=== PATIENT | female | born 1995 | race African-American/Black ===

== ENCOUNTER 2017-04-04 22:21 | Emergency (ER) | payer MEDICAID, OTHER ==
[~2017-04-04] VITALS: Ht 175.3 cm; Wt 67.1 kg
[~2017-04-04 22:21] MED LIST: AFRIN NASAL SPR30 ML NASAL; ALBUTEROL SULF8.5 GM INH; BIRTH CONTROL PILL PO; IBUPROFEN400 MG PO; IBUPROFEN600 MG PO; KEFLEX500 MG ORAL; METROGEL-VAGINA70 G1 VG; TYLENOL EXTRA500 MG ORAL
[2017-04-04 22:29] VITALS: BP 138/95
[2017-04-04 23:15] LABS: BASOPHILS % (AUTO) 1.3 % (0.0-2.0); EOSINOPHILS % (AUTO) 2.7 % (0.0-3.0); LYMPHOCYTES % (AUTO) 53.5 % (20.0-45.0); MEAN CORPUSCULAR HEMOGLOBIN 31.8 PG (27.0-31.0); MEAN CORPUSCULAR HGB CONC 34.2 G/DL (32.0-36.0); MEAN CORPUSCULAR VOLUME 93 FL (80-99); MONOCYTES % (AUTO) 7.5 % (1.0-10.0); PLATELET COUNT 227 K/UL (150-450); RED BLOOD COUNT 4.09 M/UL (4.20-5.40); RED CELL DISTRIBUTION WIDTH 12.1 % (11.6-14.8); WHITE BLOOD COUNT 8.6 K/UL (4.8-10.8)
[2017-04-04] MEDS ORDERED: Ketorolac 30mg Inj IV ONE (23:15)
[2017-04-04 23:16] LABS: APPEARANCE,URINE CLEAR; KETONES,URINE NEGATIVE (NEGATIVE); LEUKOCYTE ESTERASE ,URINE 1+ (NEGATIVE); NITRITE,URINE NEGATIVE (NEGATIVE); PH,URINE 7 (4.5-8.0); PROTEIN,URINE 1+ (NEGATIVE); UROBILINOGEN,URINE 1 MG/DL (0.0-1.0)
[2017-04-04 23:19] LABS: SQUAMOUS EPITHELIAL CELL,UR FEW /LPF (NONE/OCC); WBC,URINE 0-2 /HPF (0 - 2)
[2017-04-04 23:20] LABS: BACTERIA,URINE FEW /HPF
[2017-04-04 23:39] LABS: ALANINE AMINOTRANSFERASE 14 U/L (3-33); ALBUMIN/GLOBULIN RATIO 1.4 (1.0-2.7); ANION GAP 9 (5-15); ASPARTATE AMINO TRANSFERASE 18 U/L (5-40); CALCIUM 9.8 mg/dL (8.6-10.2); CARBON DIOXIDE 28 mEQ/L (20-30); CHLORIDE 101 mEQ/L (98-107); GLOMERULAR FILTRATION RATE > 60 mL/min (>60); HEMOLYSIS 4; LIPASE 17 U/L (< 60); POTASSIUM 3.9 mEQ/L (3.4-4.9); SODIUM 138 mEQ/L (135-145); TOTAL PROTEIN 7.3 g/dL (6.6-8.7)
[2017-04-04] MEDS ORDERED: ZOFRAN4 MG ORAL (23:47)
[2017-04-04] MEDS ORDERED: IBUPROFEN600 MG ORAL (23:47)
--- NOTE | 2017-04-04 23:47 | Emergency Room Report ---
History of Present Illness General Chief Complaint: Abdominal Pain Source: Patient Present Illness HPI Is a 22-year-old female with no past medical history. She presents with abdominal at and vomiting. This morning. She thought that she may have had some food poisoning. She ate pizza last night and felt cramps in tonight. Vomiting started the morning. No diarrhea. Pain is 8/10 cramping and sharp in nature. No radiation. Diffuse. No dysuria frequency. Allergies: Coded Allergies: No Known Allergies (Unverified , 04/04/17) Patient History Past Medical History: none, see triage record, old chart reviewed Past Surgical History: none Pertinent Family History: none Social History: Denies: smoking Last Menstrual Period: n/a Now: No - depo 02/2017 Immunizations: other Reviewed Nursing Documentation: PMH: Agreed, PSxH: Agreed Nursing Documentation-PMH Past Medical History: No History, Except For Hx Asthma: Yes Review of Systems Eye: Denies: eye pain, blurred vision ENT: Denies: ear pain, nose congestion, throat swelling Respiratory: Denies: cough, shortness of breath Cardiovascular: Denies: chest pain, palpitations Gastrointestinal: Reports: abdominal pain, nausea, vomiting, Denies: diarrhea Musculoskeletal: Denies: back pain, joint pain Skin: Denies: rash Neurological: Denies: headache, numbness Endocrine: Denies: increased thirst, increased urine Hematologic/Lymphatic: Denies: easy bruising All Other Systems: negative except mentioned in HPI Physical Exam Vital Signs Date Time Temp Pulse Resp B/P (MAP) Pulse Ox O2 Delivery O2 Flow Rate FiO2 04/04/17 22:22 97.9 66 16 133/74 99 Room Air vitals normal Sp02 EP Interpretation: reviewed, normal General Appearance: well appearing, no apparent distress, alert Head: normocephalic, atraumatic Eyes: bilateral eye PERRL, bilateral eye EOMI ENT: hearing grossly normal, normal pharynx Neck: full range of motion, supple, no meningismus Respiratory: chest non-tender, lungs clear, normal breath sounds Cardiovascular #1: regular rate, rhythm, no murmur Gastrointestinal: no mass, no organomegaly, no bruit, non-distended, abnormal bowel sounds - Hyperactive, tenderness - Mild, diffuse Musculoskeletal: back normal, gait/station normal, normal range of motion Psychiatric: mood/affect normal Skin: warm/dry Medical Decision Making Diagnostic Impression: Primary Impression: Abdominal pain Qualified Codes: R10.84 - Generalized abdominal pain Additional Impression: Nausea and vomiting in adult patient ER Course Patient with abdominal pain with nausea and vomiting. Most likely a viral gastroenteritis. No evidence of acute abdomen. No evidence of obstruction. She felt better now. No or ectopic. Lab Results Impression labs normal Last Vital Signs Date Time Temp Pulse Resp B/P (MAP) Pulse Ox O2 Delivery O2 Flow Rate FiO2 04/04/17 22:29 97.9 68 16 138/95 100 Room Air Status: improved Disposition: HOME, SELF-CARE Condition: Stable Scripts Ondansetron (Zofran) 4 Mg Tablet 4 MG ORAL Q6H Y for Nausea & Vomiting, #5 TAB 0 Refills Prov: JOAQUINA URENA M.D. 04/04/17 Ibuprofen* (MOTRIN*) 600 Mg Tablet 600 MG ORAL Q6H Y for For Pain, #30 TAB Prov: JOAQUINA URENA M.D. 04/04/17 Patient Instructions: Abdominal Pain, Adult Additional Instructions: Followup with your DrBenjamín in 2-3 days. Return if symptom worsen. Increase fluid. JOAQUINA URENA M.D. Apr 04, 2017 23:47
[2017-04-04 23:55] VITALS: BP 118/78
[2017-04-04 23:56] VITALS: BP 118/78
== END 2017-04-04 23:50 | disposition home or self-care (01) ==
LOC: EMR 22:55
DX: R10.9 Unspecified abdominal pain (principal); R11.2 Nausea with vomiting, unspecified
CPT/HCPCS: 36415; 80053; 81003; 81025; 83690; 85025; 99284; J1885; J2405

== ENCOUNTER 2017-04-06 09:42 | Emergency (ER) | payer MEDICAID ==
[~2017-04-06] VITALS: Ht 175.3 cm; Wt 68.0 kg
[~2017-04-06 09:42] MED LIST changes: +IBUPROFEN600 MG ORAL; +ZOFRAN4 MG ORAL
[2017-04-06 10:12] VITALS: BP 139/91
[2017-04-06] MEDS ORDERED: Morphine Sulfate 4mg/ml Inj IVP ONE ×2 (10:15→12:45)
[2017-04-06] MEDS ORDERED: Famotidine 20 MG/ 2ML VIAL IVP ONE (10:15)
--- NOTE | 2017-04-06 10:15 | Emergency Room Report ---
History of Present Illness General Chief Complaint: Abdominal Pain Source: Patient Present Illness HPI Patient presents again with vomiting and abdominal pain. She was seen here on . At that time she was vomiting abdominal pain. She received an IV and was better. She was told to stick with liquids but then last night she ate a burrito and started vomiting and having continued abdominal pain. The abdominal pain is 10/10 and is in her lower abdomen. She denies any vaginal discharge. Her last period was in February but she is on Depro. She doesn't believe she is at this time. She denies vomiting blood. She vomiting bile. She denies any fevers or chills. Labs on had a normal white count and test is negative. She was given a prescription for Motrin and Zofran. No chest pain, headache, cough, URI sy, rashes. Allergies: Coded Allergies: No Known Allergies (Unverified , 04/04/17) Patient History Past Medical History: see triage record Social History: Denies: smoking Social History Narrative with Mom Last Menstrual Period: depo shot Now: No Reviewed Nursing Documentation: PMH: Agreed, PSxH: Agreed Nursing Documentation-PMH Past Medical History: No History, Except For Hx Asthma: Yes Review of Systems All Other Systems: negative except mentioned in HPI Physical Exam Vital Signs Date Time Temp Pulse Resp B/P (MAP) Pulse Ox O2 Delivery O2 Flow Rate FiO2 04/06/17 09:50 97.2 78 25 104/71 92 Room Air Sp02 EP Interpretation: reviewed, normal General Appearance: well appearing, GCS 15, mild distress - with vomiting Head: normocephalic Eyes: bilateral eye normal inspection ENT: moist mucus membranes Neck: supple Respiratory: lungs clear, normal breath sounds Cardiovascular #1: regular rate, rhythm Cardiovascular #2: 2+ radial (R) Gastrointestinal: normal inspection, normal bowel sounds, no guarding, no rebound, tenderness - below umbilicus midline Genitourinary: normal inspection, adnexa normal, cervix normal, os closed, urethra normal, uterus normal, other - no CMT Musculoskeletal: back normal, gait/station normal, normal range of motion Neurologic: oriented x3, grossly normal Psychiatric: mood/affect normal Skin: normal inspection, warm/dry Medical Decision Making Diagnostic Impression: Primary Impression: Abdominal pain Qualified Codes: R10.10 - Upper abdominal pain, unspecified ER Course Patient returns with abdominal pain and vomiting. DDX: viral GItis, bacterial GItis, PID, UTI, gastritis, PUD, pancreatitis amongst others. Had ibuprofen and liberalized diet. Evaluation with labs. Treatment with IV hydration, zofran, pepcid and morphine. Labs with normal WBC making surgical problem less likely. H/H higher suggesting dehydration. Bicarb low - prob mixture of resp alkalosis and metabolic acidosis (mild). UA clear. Pelvic against PID. Improved with medication. Abdomen soft and tolerate PO well. Patient stable for outpatient observation and treatment. Laboratory Tests Test 04/06/17 10:00 04/06/17 10:06 04/06/17 10:10 Sodium Level 140 mEQ/L (135-145) Potassium Level 3.9 mEQ/L (3.4-4.9) Chloride Level 103 mEQ/L (98-107) Carbon Dioxide Level 19 mEQ/L (20-30) L Anion Gap 18 (5-15) H Blood Urea Nitrogen 8 mg/dL (7-23) Creatinine 0.9 mg/dL (0.5-0.9) Estimate Glomerular Filtration Rate > 60 mL/min (>60) Glucose Level 113 mg/dL (74-106) H Calcium Level 9.9 mg/dL (8.6-10.2) Total Bilirubin 0.4 mg/dL (0.0-1.2) Aspartate Amino Transferase (AST) 22 U/L (5-40) Alanine Aminotransferase (ALT) 20 U/L (3-33) Alkaline Phosphatase 75 U/L (35-104) Total Protein 7.9 g/dL (6.6-8.7) Albumin 4.6 g/dL (3.5-5.2) Globulin 3.3 g/dL Albumin/Globulin Ratio 1.3 (1.0-2.7) Lipase 67 U/L (< 60) H Urine Color Pale yellow Urine Appearance Cloudy Urine pH 8 (4.5-8.0) Urine Specific [place] 1.015 (1.005-1.035) Urine Protein Negative (NEGATIVE) Urine Glucose (UA) Negative (NEGATIVE) Urine Ketones Negative (NEGATIVE) Urine Occult Blood Negative (NEGATIVE) Urine Nitrite Negative (NEGATIVE) Urine Bilirubin Negative (NEGATIVE) Urine Urobilinogen Normal MG/DL (0.0-1.0) Urine Leukocyte Esterase Negative (NEGATIVE) Urine HCG, Qualitative Negative White Blood Count 8.2 K/UL (4.8-10.8) Red Blood Count 4.42 M/UL (4.20-5.40) Hemoglobin 14.3 G/DL (12.0-16.0) Hematocrit 41.6 % (37.0-47.0) Mean Corpuscular Volume 94 FL (80-99) Mean Corpuscular Hemoglobin 32.4 PG (27.0-31.0) H Mean Corpuscular Hemoglobin Concent 34.4 G/DL (32.0-36.0) Red Cell Distribution Width 12.5 % (11.6-14.8) Platelet Count 225 K/UL (150-450) Mean Platelet Volume 7.8 FL (6.5-10.1) Neutrophils (%) (Auto) 68.3 % (45.0-75.0) Lymphocytes (%) (Auto) 26.2 % (20.0-45.0) Monocytes (%) (Auto) 4.4 % (1.0-10.0) Eosinophils (%) (Auto) 0.2 % (0.0-3.0) Basophils (%) (Auto) 0.9 % (0.0-2.0) Microbiology Date/Time Source Procedure Growth Status 04/06/17 13:16 Vaginal Wet Prep - Final Complete Last Vital Signs Date Time Temp Pulse Resp B/P (MAP) Pulse Ox O2 Delivery O2 Flow Rate FiO2 04/06/17 14:47 72 14 120/68 99 Room Air 04/06/17 13:06 97.2 Status: improved Disposition: HOME, SELF-CARE Condition: Improved Scripts Famotidine (PEPCID) 20 Mg Tablet 20 MG ORAL DAILY, #20 TAB 0 Refills Prov: Jacobo Early M.D. 04/06/17 Ondansetron Odt* (ZOFRAN ODT*) 4 Mg Tab.rapdis 4 MG ORAL Q8H Y for Nausea & Vomiting, #10 TAB 0 Refills Prov: Jacobo Early M.D. 04/06/17 Tramadol Hcl* (ULTRAM*) 50 Mg Tablet 50 MG ORAL Q6H Y for For Pain, #12 TAB 0 Refills Prov: Jacobo Early M.D. 04/06/17 Jacobo Early M.D. Apr 06, 2017 10:15
[2017-04-06 10:26] LABS: APPEARANCE,URINE CLOUDY; KETONES,URINE NEGATIVE (NEGATIVE); LEUKOCYTE ESTERASE ,URINE NEGATIVE (NEGATIVE); NITRITE,URINE NEGATIVE (NEGATIVE); PH,URINE 8 (4.5-8.0); PROTEIN,URINE NEGATIVE (NEGATIVE); UROBILINOGEN,URINE NORMAL MG/DL (0.0-1.0)
[2017-04-06 11:17] VITALS: BP 112/89
[2017-04-06 11:29] LABS: BASOPHILS % (AUTO) 0.9 % (0.0-2.0); EOSINOPHILS % (AUTO) 0.2 % (0.0-3.0); LYMPHOCYTES % (AUTO) 26.2 % (20.0-45.0); MEAN CORPUSCULAR HEMOGLOBIN 32.4 PG (27.0-31.0); MEAN CORPUSCULAR HGB CONC 34.4 G/DL (32.0-36.0); MEAN CORPUSCULAR VOLUME 94 FL (80-99); MEAN PLATELET VOLUME 7.8 FL (6.5-10.1); MONOCYTES % (AUTO) 4.4 % (1.0-10.0); NEUTROPHILS % (AUTO) 68.3 % (45.0-75.0); PLATELET COUNT 225 K/UL (150-450); RED BLOOD COUNT 4.42 M/UL (4.20-5.40); RED CELL DISTRIBUTION WIDTH 12.5 % (11.6-14.8); WHITE BLOOD COUNT 8.2 K/UL (4.8-10.8)
[2017-04-06 11:53] LABS: ALANINE AMINOTRANSFERASE 20 U/L (3-33); ALBUMIN/GLOBULIN RATIO 1.3 (1.0-2.7); ANION GAP 18 (5-15); ASPARTATE AMINO TRANSFERASE 22 U/L (5-40); CALCIUM 9.9 mg/dL (8.6-10.2); CARBON DIOXIDE 19 mEQ/L (20-30); CHLORIDE 103 mEQ/L (98-107); CREATININE 0.9 mg/dL (0.5-0.9); GLOMERULAR FILTRATION RATE > 60 mL/min (>60); HEMOLYSIS 16; LIPASE 67 U/L (< 60); POTASSIUM 3.9 mEQ/L (3.4-4.9); SODIUM 140 mEQ/L (135-145); TOTAL PROTEIN 7.9 g/dL (6.6-8.7)
[2017-04-06 13:06] VITALS: BP 112/78
[2017-04-06] MEDS ORDERED: ZOFRAN ODT4 MG ORAL (14:31)
[2017-04-06] MEDS ORDERED: PEPCID20 MG ORAL (14:31)
[2017-04-06] MEDS ORDERED: TRAMADOL HCL50 MG ORAL (14:31)
[2017-04-06 14:47] VITALS: BP 120/68
== END 2017-04-06 14:45 | disposition home or self-care (01) ==
LOC: EMR 10:19
DX: R10.10 Upper abdominal pain, unspecified (principal); R11.10 Vomiting, unspecified
CPT/HCPCS: 36415; 80053; 81003; 81025; 83690; 85025; 87210; 96374; 96375; 99284; J2270; J2405; S0028

== ENCOUNTER 2018-01-24 14:19 | Emergency (ER) | payer SELFPAY ==
[~2018-01-24] VITALS: Ht 175.3 cm; Wt 77.1 kg
[~2018-01-24 14:19] MED LIST changes: +PEPCID20 MG ORAL; +TRAMADOL HCL50 MG ORAL; +ZOFRAN ODT4 MG ORAL
[2018-01-24] MEDS ORDERED: ALBUTEROL SULF8.5 GM INH (14:32)
[2018-01-24 14:35] VITALS: BP 123/77
[2018-01-24] MEDS ORDERED: Fluconazole 100mg tab ORAL ONE (15:15)
[2018-01-24] MEDS ORDERED: Phenazopyridine 200mg tab ORAL ONE (15:15)
[2018-01-24 15:55] LABS: BILIRUBIN, URINE NEGATIVE (NEGATIVE); COLOR,URINE PALE YELLOW; GLUCOSE, URINE (UA) NEGATIVE (NEGATIVE); KETONES,URINE NEGATIVE (NEGATIVE); LEUKOCYTE ESTERASE ,URINE 2+ (NEGATIVE); NITRITE,URINE POSITIVE (NEGATIVE); PH,URINE 7 (4.5-8.0); PROTEIN,URINE 3+ (NEGATIVE); UROBILINOGEN,URINE NORMAL MG/DL (0.0-1.0)
[2018-01-24 15:58] LABS: APPEARANCE,URINE SLIGHTLY CLOUDY
[2018-01-24] MEDS ORDERED: PHENAZOPYRIDIN200 MG ORAL (16:14)
[2018-01-24] MEDS ORDERED: NITROFURANTOIN100 M2 ORAL (16:14)
--- NOTE | 2018-01-24 16:14 | Emergency Room Report ---
History of Present Illness General Chief Complaint: Female Urogenital Problems Source: Patient Present Illness HPI 22-year-old female presents emergency department complaining of dysuria, urinary frequency and urgency since yesterday. Patient denies pain at this time however she states earlier she had some mild lower abdominal cramping. Patient denies abdominal tenderness, nausea, vomiting, swollen tender lymph nodes, fevers, chills, genital lesions or rashes. Patient denies vaginal discharge or recent unprotected intercourse. reports hx of yeast infection. Patient denies . Denies low back pain. Allergies: Coded Allergies: No Known Allergies (Unverified , 04/04/17) Patient History Past Medical History: see triage record Past Surgical History: none Pertinent Family History: none Last Menstrual Period: pt. on control shot Now: No Reviewed Nursing Documentation: PMH: Agreed; PSxH: Agreed Nursing Documentation-PMH Past Medical History: No History, Except For Hx Asthma: Yes Review of Systems All Other Systems: negative except mentioned in HPI Physical Exam Vital Signs Date Time Temp Pulse Resp B/P (MAP) Pulse Ox O2 Delivery O2 Flow Rate FiO2 01/24/18 14:26 98.3 77 17 123/77 98 Room Air 98.2 Sp02 EP Interpretation: reviewed, normal General Appearance: no apparent distress, alert, GCS 15, non-toxic Head: normocephalic, atraumatic ENT: hearing grossly normal, normal voice Neck: full range of motion Respiratory: lungs clear, normal breath sounds, speaking full sentences Cardiovascular #1: regular rate, rhythm Gastrointestinal: normal bowel sounds, non tender, soft Rectal: deferred Genitourinary: normal inspection, no CVA tenderness Musculoskeletal: gait/station normal, normal range of motion Neurologic: alert, oriented x3, responsive, motor strength/tone normal, sensory intact, normal gait, speech normal, grossly normal Psychiatric: judgement/insight normal Skin: normal color, no rash, warm/dry, well hydrated Lymphatic: no adenopathy Medical Decision Making PA Attestation Dr. Rowley is my supervising physician whom pt. management has been discussed with. Diagnostic Impression: Primary Impression: UTI (urinary tract infection) Qualified Codes: N30.00 - Acute cystitis without hematuria ER Course 22-year-old female presents emergency department complaining of dysuria, urinary frequency and urgency since yesterday. Patient denies pain at this time however she states earlier she had some mild lower abdominal cramping. Patient denies abdominal tenderness, nausea, vomiting, swollen tender lymph nodes, fevers, chills, genital lesions or rashes. Patient denies vaginal discharge or recent unprotected intercourse. reports hx of yeast infection. Patient denies . Denies low back pain. Ddx considered but are not limited to UTi , Pyelo, STI, Stone, Cystitis Vital signs: are WNL, pt. is afebrile H&PE are most consistent with UTI ORDERS: - UA labs are attached - Positive for UTI ED INTERVENTIONS: -Pyridium PO -Diflucan PO DISCHARGE: At this time pt. is stable for d/c to home. Will provide printed patient care instructions, and any necessary prescriptions. Care plan and follow up instructions have been discussed with the patient prior to discharge. Labs Test 01/24/18 14:39 Urine Color Pale yellow Urine Appearance Slightly cloudy Urine pH 7 (4.5-8.0) Urine Specific [place] 1.015 (1.005-1.035) Urine Protein 3+ (NEGATIVE) Urine Glucose (UA) Negative (NEGATIVE) Urine Ketones Negative (NEGATIVE) Urine Occult Blood 5+ (NEGATIVE) Urine Nitrite Positive (NEGATIVE) Urine Bilirubin Negative (NEGATIVE) Urine Urobilinogen Normal MG/DL (0.0-1.0) Urine Leukocyte Esterase 2+ (NEGATIVE) Urine RBC 2-4 /HPF (0 - 2) Urine WBC 2-4 /HPF (0 - 2) Urine Squamous Epithelial Cells Few /LPF (NONE/OCC) Urine Bacteria Many /HPF (NONE) Urine HCG, Qualitative Negative (NEGATIVE) Last Vital Signs Date Time Temp Pulse Resp B/P (MAP) Pulse Ox O2 Delivery O2 Flow Rate FiO2 01/24/18 14:35 98.2 78 17 123/77 98 Room Air 98.2 Disposition: HOME, SELF-CARE Condition: Stable Scripts Nitrofurantoin Monohyd/M-Cryst* (MACROBID 100 MG*) 100 Mg Capsule 100 MG ORAL EVERY 12 HOURS for 5 Days, #10 CAP Prov: Nadine Berger 01/24/18 Phenazopyridine Hcl* (PYRIDIUM*) 200 Mg Tablet 200 MG ORAL THREE TIMES A DAY for 3 Days, #9 TAB 0 Refills Prov: Nadine Berger 01/24/18 Referrals: NON PHYSICIAN (PCP) Patient Instructions: Urinary Tract Infection Additional Instructions: Take medications as directed. Pyridium will cause your urine to change color (Red/[place]), this is a normal side effect of the medication. Follow up with a Primary Care Provider in 3-5 days, even if your symptoms have resolved. --Please review list of primary care clinics, if you do not already have a primary care provider Return sooner to ED if new symptoms occur, or current symptoms become worse. - Please note that this Emergency Department Report was dictated using [employer] technology software, occasionally this can lead to erroneous entry secondary to interpretation by the dictation equipment. Nadine Berger Jan 24, 2018 16:14
[2018-01-24 16:35] VITALS: BP 123/77
== END 2018-01-24 16:36 | disposition home or self-care (01) ==
LOC: EMR 14:58
DX: N39.0 Urinary tract infection, site not specified (principal); J45.909 Unspecified asthma, uncomplicated
CPT/HCPCS: 81003; 81025; 87086; 99284

== ENCOUNTER 2019-08-17 18:18 | Emergency (ER) | payer SELFPAY ==
[~2019-08-17] VITALS: Ht 175.3 cm; Wt 81.6 kg
[~2019-08-17 18:18] MED LIST changes: +NITROFURANTOIN100 M2 ORAL; +PHENAZOPYRIDIN200 MG ORAL
--- NOTE | 2019-08-17 19:01 | NUR ---
ED Nurse Note: pt presents to ED c/o a rash since saturday. pt states that she took benadryl when she first saw the rash and that it started as hives and now the rash is fine "like sandpaper." pt reports that the rash itches and is all over her body, arms and neck. pt last took benadryl on saturday. pt denies eating anything differen than normal or using any different skin/hair products.
[2019-08-17 19:04] VITALS: BP 132/64
[2019-08-17] MEDS ORDERED: CALAMINE LOTIO177 ML TP (19:07)
[2019-08-17] MEDS ORDERED: MEDROL DOSEPAK4 MG ORAL (19:07)
[2019-08-17] MEDS ORDERED: BENADRYL25 MG ORAL (19:07)
[2019-08-17] MEDS ORDERED: RANITIDINE HCL150 MG ORAL (19:07)
[2019-08-17 19:10] VITALS: BP 132/64
--- NOTE | 2019-08-17 19:10 | Emergency Room Report ---
History of Present Illness General Chief Complaint: Skin Rash/Abscess Source: Patient Present Illness HPI Patient presents with complaints of rash Started on Saturday patient initially noticed some on her left hand was taking Benadryl it did improve somewhat however she has noticed that the rash has spread throughout the body chest abdomen and diffusely reports that the area is very itchy in nature Patient cannot recall any contact with new material does not recall eating anything unusual Denies any sore throat denies any difficulty swallowing denies any change in voice and presents for further evaluation Allergies: Coded Allergies: No Known Allergies (Unverified , 04/04/17) Patient History Past Medical History: see triage record Last Menstrual Period: bcp Now: No Reviewed Nursing Documentation: PMH: Agreed; PSxH: Agreed Nursing Documentation-PMH Past Medical History: No History, Except For Hx Asthma: Yes Review of Systems All Other Systems: negative except mentioned in HPI Physical Exam Vital Signs Date Time Temp Pulse Resp B/P (MAP) Pulse Ox O2 Delivery O2 Flow Rate FiO2 08/17/19 18:46 99.0 86 20 132/64 (86) 98 Room Air Sp02 EP Interpretation: reviewed, normal General Appearance: well appearing, no apparent distress Head: normocephalic, atraumatic Eyes: bilateral eye PERRL, bilateral eye EOMI ENT: hearing grossly normal, normal pharynx, TMs + canals normal, uvula midline Neck: full range of motion, supple, no meningismus, no bony tend Respiratory: lungs clear, normal breath sounds, no rhonchi, no respiratory distress, no retraction, no accessory muscle use Cardiovascular #1: normal peripheral pulses, regular rate, rhythm, no edema, no gallop, no JVD, no murmur Gastrointestinal: normal bowel sounds, non tender, soft, no mass, no organomegaly, non-distended, no guarding, no hernia, no pulsatile mass, no rebound Genitourinary: no CVA tenderness Musculoskeletal: normal inspection Neurologic: motor strength/tone normal, procurement specialist III-XII nml as tested, oriented x3 , sensory intact, responsive Psychiatric: mood/affect normal Skin: rash - Diffuse fine erythematous rash involving the upper chest abdomen bilateral arms, no obvious fluctuance no dermatomal pattern Lymphatic: normal inspection, no adenopathy Medical Decision Making Diagnostic Impression: Primary Impression: Rash and other nonspecific skin eruption ER Course Patient appears to be having an allergic reaction the source is not clear patient denies any other medications Or foreign contact No obvious airway process is noted patient is treated in the emergency room and will require prescription for outpatient follow-up and possible skin testing for further evaluation Last Vital Signs Date Time Temp Pulse Resp B/P (MAP) Pulse Ox O2 Delivery O2 Flow Rate FiO2 08/17/19 19:04 99.0 79 20 132/64 98 Room Air Status: improved Disposition: HOME, SELF-CARE Condition: Improved Scripts Calamine/Zinc Oxide (CALAMINE LOTION*) 177 Ml Suspension 1 APPLIC TP BID for 3 Days, #3 ML 0 Refills Prov: Tiburcio Chaparro DO 08/17/19 Ranitidine Hcl* (ZANTAC*) 150 Mg Tablet 150 MG ORAL TWICE A DAY, #30 TAB Prov: Tiburcio Chaparro DO 08/17/19 Diphenhydramine Hcl* (BENADRYL*) 25 Mg Capsule 25 MG ORAL Q6H PRN for Itching, #30 CAP Prov: Tiburcio Chaparro DO 08/17/19 Methylprednisolone (Methylprednisolone*) 4MG Dspk 4 MG ORAL DIRECTED for 6 Days, #21 EA 0 Refills Day 1: Two tablets before breakfast, one after lunch, one after dinner, and two at bedtime. If started late in the day, take all six tablets at once or divide into two or three doses, unless otherwise directed by prescriber. Day 2: One tablet before breakfast, one after lunch, one after dinner, and two at bedtime Day 3: One tablet before breakfast, one after lunch, one after dinner, and one at bedtime Day 4: One tablet before breakfast, one after lunch, and one at bedtime Day 5: One tablet before breakfast and one at bedtime Day 6: One tablet before breakfast Prov: Tiburcio Chaparro DO 08/17/19 Referrals: [facility] Simone Rebolledo [facility] Patient Instructions: Rash Additional Instructions: Patient is provided with the discharge instructions notified to follow up with primary doctor in the next 2-3 days otherwise return to the er with any worsening symptoms. Please note that this report is being documented using [employer] technology. This can lead to erroneous entry secondary to incorrect interpretation by the dictating instrument. Tiburcio Chaparro DO Aug 17, 2019 19:10
--- NOTE | 2019-08-17 19:10 | NUR ---
ER DISCHARGE NOTE: Patient is cleared to be discharged per ERMD, pt is aox4, on room air, with stable vital signs. pt was given dc and prescription instructions. she was able to verbalize understanding of all teachings. pt id band removed without complications. pt is able to ambulate with steady gait. pt took all belongings.
== END 2019-08-17 19:10 | disposition home or self-care (01) ==
LOC: EMR 18:50
DX: R21 Rash and other nonspecific skin eruption (principal)
CPT/HCPCS: 99282; J7512

== ENCOUNTER 2020-06-09 17:18 | Emergency (ER) | payer OTHER ==
[~2020-06-09] VITALS: Ht 175.3 cm; Wt 74.8 kg
[~2020-06-09 17:18] MED LIST changes: +BENADRYL25 MG ORAL; +CALAMINE LOTIO177 ML TP; +MEDROL DOSEPAK4 MG ORAL; +RANITIDINE HCL150 MG ORAL
[2020-06-09] MEDS ORDERED: Omnipaque 350 100ml vial INJ PRN (17:30)
--- NOTE | 2020-06-09 17:35 | NUR ---
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 states that shes unable to bear weight on said extremity. AAOx4, no SOB.
[2020-06-09] MEDS ORDERED: Morphine Sulfate 4mg/ml Inj (IV USE ONLY) IVP ONE (17:45)
--- NOTE | 2020-06-09 17:49 | NUR ---
ED Nurse Note: Xray at bedside.
[2020-06-09 17:53] LABS: BASOPHILS % (AUTO) 1.4 % (0.0-2.0); EOSINOPHILS % (AUTO) 1.8 % (0.0-3.0); HEMATOCRIT 40.9 % (37.0-47.0); HEMOGLOBIN 13.3 G/DL (12.0-16.0); MEAN CORPUSCULAR VOLUME 95 FL (80-99); MONOCYTES % (AUTO) 9.5 % (1.0-10.0); NEUTROPHILS % (AUTO) 46.3 % (45.0-75.0); PLATELET COUNT 262 K/UL (150-450); RED BLOOD COUNT 4.29 M/UL (4.20-5.40); RED CELL DISTRIBUTION WIDTH 12.5 % (11.6-14.8); WHITE BLOOD COUNT 10.7 K/UL (4.8-10.8)
--- NOTE | 2020-06-09 17:55 | NUR ---
ED Nurse Note: Xray at bedside.
--- NOTE | 2020-06-09 18:10 | NUR ---
ED Nurse Note: Pt taken to CT via gurbenjamin. Consent signed by pt.
[2020-06-09 18:15] LABS: ANION GAP 5 mmol/L (5-15); BLOOD UREA NITROGEN 18 mg/dL (7-18); CALCIUM 8.7 MG/DL (8.5-10.1); CARBON DIOXIDE 29 MMOL/L (21-32); CHLORIDE 104 MMOL/L (98-107); CREATININE 1.1 MG/DL (0.55-1.30); POTASSIUM 3.9 MMOL/L (3.5-5.1); SODIUM 138 MMOL/L (136-145)
[2020-06-09 18:20] LABS: ALANINE AMINOTRANSFERASE 30 U/L (12-78); ALBUMIN 3.7 G/DL (3.4-5.0); ALBUMIN/GLOBULIN RATIO 0.9 (1.0-2.7); ALKALINE PHOSPHATASE 74 U/L (46-116); ASPARTATE AMINO TRANSFERASE 26 U/L (15-37); BILIRUBIN,TOTAL 0.3 MG/DL (0.2-1.0)
--- NOTE | 2020-06-09 18:31 | NUR ---
ED Nurse Note: Pt returned from CT.
--- NOTE | 2020-06-09 18:38 | Emergency Room Report ---
History of Present Illness General Chief Complaint: Lower Extremity Injury Source: Patient Present Illness HPI 25-year-old female presents to the emergency department complaining of 10 out of 10 severity localized right knee pain x3 days. Patient reports status post mechanical trip and fall. Patient reports she has been having significant pain with attempts to weight-bear. Patient also reports that her leg feels as though it is going to give out. Patient states that she has been trying 800 mg Motrin, CBD oil, Biofreeze, which stepan in an attempt to relieve her symptoms. Patient reports that her pain has not improved and she still has significant swelling in the right knee. She denies skin color changes to the right foot. She denies temperature changes in the right foot. She denies paresthesias. She denies hitting her head or having a loss of consciousness. She denies midline neck or back pain. She denies loss of gross motor movement of the affected extremity. She states any slight movement significantly exacerbates her pain. She denies . 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 COVID-19 Screening: Negative COVID-19 [facility] History Past Medical History: see triage record Past Surgical History: none Pertinent Family History: none Last Menstrual Period: currently on control Now: No Reviewed Nursing Documentation: PMH: Agreed; PSxH: Agreed Nursing Documentation-PMH Past Medical History: No History, Except For Hx Asthma: Yes Review of Systems All Other Systems: negative except mentioned in HPI Physical Exam Vital Signs Date Time Temp Pulse Resp B/P (MAP) Pulse Ox O2 Delivery O2 Flow Rate FiO2 06/09/20 17:30 97.9 85 16 130/94 (106) 98 Room Air Sp02 EP Interpretation: reviewed, normal General Appearance: no apparent distress, alert, GCS 15, non-toxic Head: normocephalic, atraumatic Eyes: bilateral eye normal inspection, bilateral eye PERRL ENT: hearing grossly normal, normal voice Neck: full range of motion Respiratory: lungs clear, normal breath sounds, speaking full sentences Cardiovascular #1: regular rate, rhythm, normal capillary refill Cardiovascular #2: 2+ dorsalis pedis (R) Musculoskeletal: back normal, tender - Moderate right knee ST swelling. Increased laxity on Valgus stressing. Negative ant. and post. drawer signs. equal leg length. NO obvious deformity or visible dislocation, 2+ distal pulses., other - Limited ROM due to pain. Neurologic: alert, motor strength/tone normal, oriented x3, sensory intact, responsive, speech normal, grossly normal Psychiatric: judgement/insight normal Skin: normal color Medical Decision Making PA Attestation Dr. Cunningham Is my supervising Physician whom patient management has been discussed with. Diagnostic Impression: Primary Impression: Femur fracture, right Qualified Codes: S72.491A - Other fracture of lower end of right femur, initial encounter for closed fracture Additional Impressions: Tear of MCL (medial collateral ligament) of knee Qualified Codes: S83.411A - Sprain of medial collateral ligament of right knee, initial encounter Right knee sprain Qualified Codes: S83.411A - Sprain of medial collateral ligament of right knee, initial encounter ER Course 25-year-old female presents to the emergency department complaining of 10 out of 10 severity localized right knee pain x3 days. Patient reports status post mechanical trip and fall. Patient reports she has been having significant pain with attempts to weight-bear. Patient also reports that her leg feels as though it is going to give out. Patient states that she has been trying 800 mg Motrin, CBD oil, Biofreeze, which stepan in an attempt to relieve her symptoms. Patient reports that her pain has not improved and she still has significant swelling in the right knee. She denies skin color changes to the right foot. She denies temperature changes in the right foot. She denies paresthesias. She denies hitting her head or having a loss of consciousness. She denies midline neck or back pain. She denies loss of gross motor movement of the affected extremity. She states any slight movement significantly exacerbates her pain. She denies . Ddx considered but are not limited to Fracture, dislocation, contusion,Ligamental injury, arterial injury, or effusion just to name a few. Vital signs: are WNL, pt. is afebrile H&PE are most consistent with suspected tear of the right MCL. Moderate right knee ST swelling. Increased laxity on Valgus stressing. Negative ant. and post. drawer signs. equal leg length. NO obvious deformity or visible dislocation, 2+ distal pulses. ORDERS: X-ray RIGHT knee complete 3 view - negative for fx or Dislocation, knee effusion noted. -CTA- RLE.: WNL ED INTERVENTIONS: - 4mg Morphine IV -4mg Zofran IV -2mg Morphine IV --Knee Immobilizer splint applied to the RIGHT Knee by cvir tech. Pt. remains neurovascularly intact. --Patient is provided with crutches and instructed on their use I discussed diagnostic imaging findings with the patient and emphasized need for orthopedic follow-up. I also emphasized to the patient that she is not to remove the knee immobilizer or bear weight on the affected extremity until she has been cleared by Ortho. DISCHARGE: At this time pt. is stable for d/c to home. Will provide printed patient care instructions, and any necessary prescriptions. Care plan and follow up instructions have been discussed with the patient prior to discharge. Other X-Ray Diagnostic Results Other X-Ray Diagnostic Results : # of Views/Limited Vs Complete: 3 View Indication: Pain EP Interpretation: Yes PA Xray: Interpretation reviewed, by supervising MD, and agrees with findings. Interpretation: no dislocation, no fractures, other - KNEE EFFUSION Impression: Other - ABNORMAL Electronically Signed by: NADINE BERGER PA-C CT/MRI/US Diagnostic Results CT/MRI/US Diagnostic Results : Imaging Test Ordered: CTA RIGHT LOWER EXTREMITY Impression " IMPRESSION: 1. Fracture of the lateral distal femur. 2. Moderate to large joint effusion. 3. There is three-vessel runoff to the right ankle. ." --Per official radiology report- Please see report for specific details. Last Vital Signs Date Time Temp Pulse Resp B/P (MAP) Pulse Ox O2 Delivery O2 Flow Rate FiO2 06/09/20 17:30 97.9 85 16 130/94 (106) 98 Room Air Status: improved Disposition: HOME, SELF-CARE Condition: Stable Scripts Ibuprofen* (MOTRIN*) 600 Mg Tablet 600 MG ORAL THREE TIMES A DAY, #20 TAB Prov: Nadine Berger 06/09/20 Hydrocodone Bit/Acetaminophen 5-325* (NORCO 5-325 TABLET*) 1 Each Tablet 1 TAB ORAL Q6H PRN for FOR PAIN, #15 TAB 0 Refills Prov: Nadine Berger 06/09/20 Referrals: NON PHYSICIAN (PCP) Orthopedic Urgent Care Patient Instructions: Muscle Tear Additional Instructions: Take medications as directed. Do not drink alcohol, drive, or operate heavy machinery while taking [place] as this may cause drowsiness. Follow up with an [facility] in 3-5 days, even if your symptoms have resolved. If symptoms persist MRI may be required at the discretion of your PCP or Ortho Specialist. --Please review list of primary care clinics, if you do not already have a primary care provider who can give you an Orthopedic Referral. Return sooner to ED if new symptoms occur, or current symptoms become worse. - Please note that this Emergency Department Report was dictated using [employer] software, occasionally this can lead to erroneous entry secondary to interpretation by the dictation equipment. Nadine Berger Jun 09, 2020 18:38
--- NOTE | 2020-06-09 19:44 | Diagnostic Imaging Report ---
EXAM: CT Angiography of the Right Lower Extremity With Intravenous Contrast CLINICAL HISTORY: PAIN TECHNIQUE: Axial computed tomographic angiography images of the right lower extremity with intravenous contrast. CTDI is 90.6 mGy and DLP is 772.8 mGy-cm. One or more of the following dose reduction techniques were used: automated exposure control, adjustment of the mA and/or kV according to patient size, use of iterative reconstruction technique. MIP reconstructed images were created and reviewed. Coronal and sagittal reformatted images were created and reviewed. COMPARISON: No relevant prior studies available. FINDINGS: VASCULATURE: Right femoral/popliteal arteries: No acute findings. No occlusion or significant stenosis. Right calf/foot arteries: No acute findings. No occlusion or significant stenosis. There is three-vessel runoff to the right ankle. LOWER EXTREMITY: Bones/joints: There is fracture of the distal femur involving the lateral distal metaphysis and the lateral femoral condyle. The fracture is offset by 3 mm. Some dystrophic calcifications are seen at the medial aspect of the patella which are chronic. There is a moderate to large joint effusion. No dislocation. Soft tissues: Unremarkable. No abnormal contrast enhancement. IMPRESSION: 1. Fracture of the lateral distal femur. 2. Moderate to large joint effusion. 3. There is three-vessel runoff to the right ankle.
[2020-06-09] MEDS ORDERED: NORCO 5-325 TA1 EAC1 ORAL (20:08)
[2020-06-09] MEDS ORDERED: IBUPROFEN600 M1 ORAL (20:08)
[2020-06-09] MEDS ORDERED: Morphine Sulfate 2mg/ml Inj(IV/IM USE ONLY) IVP ONE (20:30)
[2020-06-09 20:45] VITALS: BP 122/89
--- NOTE | 2020-06-09 20:45 | NUR ---
ER DISCHARGE NOTE: Patient is cleared to be discharged per ERMD, pt is aox4, on room air, with stable vital signs. pt was given dc and prescription instructions, pt was able to verbalize understanding, pt id band and iv site removed intact without complications. pt is able to ambulate with crutches. pt took all belongings. pt stable upon discharge.
--- NOTE | 2020-06-10 17:52 | Diagnostic Imaging Report ---
Indication: Pain, status post fall, swelling Technique: 3 views of the right knee Comparison: None Findings: There is evidence of a large joint effusion. No acute fractures. No dislocations. The joint spaces are preserved Impression: Large joint effusion, internal derangement possible. No acute bony trauma
== END 2020-06-09 20:45 | disposition home or self-care (01) ==
LOC: EMR 17:51
DX: S72.401A Unspecified fracture of lower end of right femur, initial encounter for closed fracture (principal); S83.411A Sprain of medial collateral ligament of right knee, initial encounter; W01.0XXA Fall on same level from slipping, tripping and stumbling without subsequent striking against object, initial encounter; Y93.9 Activity, unspecified; Y92.9 Unspecified place or not applicable; J45.909 Unspecified asthma, uncomplicated; Z79.899 Other long term (current) drug therapy
CPT/HCPCS: 36415; 73562; 73706; 80053; 81025; 84702; 85025; 85610; 85730; 96374; 96375; 96376; 99284; J2270; J2405; Q9967